=== PATIENT | female | born 1980 | race Caucasian/White ===

== ENCOUNTER 2018-10-05 10:09 | Emergency (ER) | payer MEDICAID, OTHER ==
[~2018-10-05] VITALS: Ht 172.7 cm; Wt 90.9 kg
[2018-10-05 10:41] VITALS: BP 118/50
[2018-10-05] MEDS ORDERED: dexamethasone sod phosphate 10mg/ml inj PO STA (11:46)
[2018-10-05] MEDS ORDERED: GUAI1TBM19 PO (11:51)
[2018-10-05] MEDS ORDERED: AMOX-422 PO (11:51)
== END 2018-10-05 12:23 | disposition home or self-care (01) ==
LOC: ER 10:10
DX: J32.9 Chronic sinusitis, unspecified (principal); R09.82 Postnasal drip; J02.9 Acute pharyngitis, unspecified; Z88.2 Allergy status to sulfonamides; Z79.2 Long term (current) use of antibiotics; Z79.899 Other long term (current) drug therapy
CPT/HCPCS: 99283; J1100

== ENCOUNTER 2018-11-12 09:10 | Emergency (ER) | payer MEDICAID, OTHER ==
[~2018-11-12] VITALS: Ht 171.4 cm; Wt 95.1 kg
[~2018-11-12 09:10] MED LIST: GUAI1TBM19 PO
[2018-11-12 09:41] VITALS: BP 118/83
[2018-11-12] MEDS ORDERED: ALBU8.5H8 INH (09:54)
[2018-11-12] MEDS ORDERED: METH4TAB81 PO (09:54)
[2018-11-12] MEDS ORDERED: AZIT250T83 PO (09:54)
[2018-11-12] MEDS ORDERED: BENZ-16 PO (09:54)
== END 2018-11-12 10:08 | disposition home or self-care (01) ==
LOC: ER 09:11
DX: H92.01 Otalgia, right ear (principal); J45.909 Unspecified asthma, uncomplicated; Z88.2 Allergy status to sulfonamides; Z88.8 Allergy status to other drugs, medicaments and biological substances; Z79.899 Other long term (current) drug therapy
CPT/HCPCS: 99283